=== PATIENT | female | born 1980 | race Caucasian/White ===

== ENCOUNTER → 2017-09-03 15:11 | Outpatient (REF) | payer OTHER, SELFPAY ==
[2017-09-03 18:43] LABS: Basophils % 0.3 % (0.1-2.0); Eosinophils # 0.1 K/mm3 (0.0-0.4); Eosinophils % 1.5 % (0.1-12.0); Hematocrit 33.9 % (37.0-47.0); Hemoglobin 10.5 g/dL (12.2-16.2); Lymphocytes # 1.5 K/mm3 (0.7-4.5); Lymphocytes % 19.6 K/mm3 (10-50); Mean Corpuscular Hemoglobin 25.3 pg (27.0-31.2); Mean Corpuscular Volume 81.6 fl (81-99); Mean Platelet Volume 9.1 fl (7.4-10.4); Monocytes # 0.5 K/mm3 (0.1-1.0); Monocytes % 6.7 % (1.7-9.3); Neutrophils # 5.5 K/mm3 (1.8-7.8); Neutrophils % 71.9 % (37.0-80.0); Platelet Count 298 K/mm3 (142-424); Red Blood Count 4.15 M/mm3 (4.20-5.40); Red Cell Distribution Width 13.8 % (11.5-17.5); White Blood Count 7.7 K/mm3 (4.8-10.8)
[2017-09-03 19:35] LABS: Alanine Aminotransferase 27 U/L (12-78); Albumin Level 4.2 gm/dL (3.4-5.0); Albumin/Globulin Ratio 1.2 (1.1-1.8); Alkaline Phosphatase 80 U/L (46-116); Anion Gap 12.3 mEq/L (5-15); Aspartate Amino Transferase 22 U/L (15-37); Bilirubin,Total 0.2 mg/dL (0.2-1.0); Blood Urea Nitrogen 14 mg/dL (7-18); Calcium 9.4 mg/dL (8.5-10.1); Carbon Dioxide 24 mmol/L (21.0-32.0); Chloride 107 mmol/L (98-107); Chol/HDL Ratio 3.9 (1-3.5); Cholesterol 175 mg/dL (140-200); Creatinine,Serum 0.68 mg/dL (0.55-1.02); Estimated Glomerular Filt Rate 98 ml/min (>60); GFR (African American) 118 ML/MIN (>60); Globulin 3.6 gm/dl (1.3-3.2); Glucose 84 mg/dL (74-106); HDL Cholesterol 45 mg/dL (29-89); LDL Cholesterol 115 mg/dL (0-130); Potassium 4.3 mmoL/L (3.5-5.1); Sodium 139 mmol/L (136-145); T4 (Thyroxine) 10.7 ug/dl (4.7-13.3); Thyroid Stimulating Hormone 3.93 uIU/ml (0.358-3.740); Total Protein,Serum 7.8 gm/dL (6.4-8.2); Triglycerides 75 mg/dL (30-200); VLDL Cholesterol 15 mg/dL (0-40)
[2017-09-04 15:48] LABS: Ferritin 5 ng/mL (8-388)
[2017-09-06 08:25] LABS: Iron 42 ug/dL (27-159); UIBC 343 ug/dL (131-425)
[2017-09-06 11:08] LABS: Vitamin D 25 Hydroxy 33.4 ng/mL (30.0-100.0)
[2017-09-06 11:11] LABS: Iron Saturation 11 % (15-55)
== END ==
LOC: LAB 15:11
PROVIDERS: Visit Provider Physician Assistant
DX: E03.9 Hypothyroidism, unspecified (principal); D50.9 Iron deficiency anemia, unspecified; E55.9 Vitamin D deficiency, unspecified
CPT/HCPCS: 80053; 80061; 82652; 82728; 83550; 84436; 84443; 85025

== ENCOUNTER → 2017-09-04 08:20 | Outpatient (REF) | payer OTHER, SELFPAY | LOC: LAB 08:20 | PROVIDERS: Visit Provider Physician Assistant | DX: E03.9 Hypothyroidism, unspecified (principal) ==

== ENCOUNTER → 2018-04-08 13:57 | Outpatient (REF) | payer OTHER, SELFPAY ==
[2018-04-08 18:01] LABS: Basophils # 0.1 K/mm3 (0-0.2); Eosinophils # 0.2 K/mm3 (0.0-0.4); Eosinophils % 2.9 % (0.1-12.0); Hematocrit 29.1 % (37.0-47.0); Hemoglobin 8.9 g/dL (12.2-16.2); Lymphocytes # 1.2 K/mm3 (0.7-4.5); Lymphocytes % 22.8 K/mm3 (10-50); Mean Corpuscular HGB Conc 30.5 g/dL (31.8-35.4); Mean Corpuscular Hemoglobin 23.4 pg (27.0-31.2); Mean Corpuscular Volume 76.8 fl (81-99); Mean Platelet Volume 8.1 fl (7.4-10.4); Monocytes # 0.4 K/mm3 (0.1-1.0); Monocytes % 6.6 % (1.7-9.3); Neutrophils # 3.5 K/mm3 (1.8-7.8); Neutrophils % 66.8 % (37.0-80.0); Platelet Count 385 K/mm3 (142-424); Red Blood Count 3.78 M/mm3 (4.20-5.40); Red Cell Distribution Width 13.6 % (11.5-17.5); White Blood Count 5.3 K/mm3 (4.8-10.8)
[2018-04-08 18:19] LABS: Alanine Aminotransferase 21 U/L (12-78); Albumin Level 3.9 gm/dL (3.4-5.0); Albumin/Globulin Ratio 1.1 (1.1-1.8); Anion Gap 14.4 mEq/L (5-15); Aspartate Amino Transferase 13 U/L (15-37); Bilirubin,Total 0.2 mg/dL (0.2-1.0); Blood Urea Nitrogen 11 mg/dL (7-18); Calcium 9.2 mg/dL (8.5-10.1); Carbon Dioxide 25 mmol/L (21.0-32.0); Chloride 107 mmol/L (98-107); Cholesterol 163 mg/dL (140-200); Creatinine,Serum 0.87 mg/dL (0.55-1.02); Estimated Glomerular Filt Rate 73 ml/min (>60); GFR (African American) 89 ML/MIN (>60); Globulin 3.5 gm/dl (1.3-3.2); Glucose 85 mg/dL (74-106); HDL Cholesterol 34 mg/dL (29-89); LDL Cholesterol 103 mg/dL (0-130); Potassium 4.4 mmoL/L (3.5-5.1); Sodium 142 mmol/L (136-145); Total Protein,Serum 7.4 gm/dL (6.4-8.2); Triglycerides 129 mg/dL (30-200); VLDL Cholesterol 26 mg/dL (0-40)
[2018-04-08 18:20] LABS: Alkaline Phosphatase 75 U/L (46-116); Chol/HDL Ratio 4.8 (1-3.5); Thyroid Stimulating Hormone 4.66 uIU/ml (0.358-3.740)
[2018-04-10 20:01] LABS: Vitamin D 25 Hydroxy 48.1 ng/mL (30.0-100.0)
== END ==
LOC: LAB 13:57
PROVIDERS: Visit Provider Physician Assistant
DX: E03.9 Hypothyroidism, unspecified (principal); E55.9 Vitamin D deficiency, unspecified
CPT/HCPCS: 80053; 80061; 82652; 84436; 84443; 85025

== ENCOUNTER → 2018-04-18 08:17 | Outpatient (CLI) | payer OTHER, SELFPAY ==
[2018-04-18 11:00] LABS: Ferritin 4 ng/mL (8-388)
[2018-04-19 12:13] LABS: Iron 15 ug/dL (27-159); UIBC 357 ug/dL (131-425)
[2018-04-21 05:17] LABS: Iron Saturation 4 % (15-55)
== END ==
LOC: LAB 08:17
PROVIDERS: PCP Physician Assistant; Visit Provider Physician Assistant
DX: D50.9 Iron deficiency anemia, unspecified (principal)
CPT/HCPCS: 36415; 82728; 83540; 83550

== ENCOUNTER → 2018-09-30 09:20 | Outpatient (CLI) | payer OTHER, SELFPAY ==
--- NOTE | 2018-09-30 09:23 | US_ITS ---
US transvaginal HISTORY: ITS.REASON: US T/V- Abnormal Bleeding, check uterus Size ORDERING PHYSICIAN: Obi Walsh MD PATIENT AGE: 37 years Comparison: None FINDINGS: The uterus is enlarged at 14 x 11 x 13 cm. Combined endometrial thickness is 9 mm. There is a 9 x 9 cm area of heterogeneous echogenicity in the fundus of the uterus consistent with fibroid. Left ovary is 4 x 2.6 cm and contains a 2 cm cyst. The right ovary is difficult to visualize. No obvious adnexal mass evident on the right. In the left adnexa superior to the ovary there is a cystic area measuring 5 x 4 cm. This could represent an area of fluid-filled bowel. Tubular appearing area of hypoechogenicity noted in this region as well which may be due to bowel. IMPRESSION: 1. Enlarged uterus with noncemented fibroid. 2. Incomplete evaluation of the right adnexa3 cystic area superior to the left ovary possibly related to fluid-filled bowel. CT of the pelvis with both IV and oral contrast with delayed imaging may be of further value.
== END ==
PROVIDERS: PCP Physician Assistant; Visit Provider Nurse Practitioner Obstetrics & Gynecology
DX: N93.9 Abnormal uterine and vaginal bleeding, unspecified (principal)
CPT/HCPCS: 76830

== ENCOUNTER → 2018-11-18 10:08 | Outpatient (CLI) | payer OTHER, SELFPAY ==
[2018-11-18 10:48] LABS: Basophils # 0.1 K/mm3 (0-0.2); Basophils % 0.8 % (0.1-2.0); Eosinophils # 0.1 K/mm3 (0.0-0.4); Eosinophils % 1.2 % (0.1-12.0); Hematocrit 26.2 % (37.0-47.0); Lymphocytes # 1.3 K/mm3 (0.7-4.5); Lymphocytes % 21.6 % (10-50); Mean Corpuscular HGB Conc 28.1 g/dL (31.8-35.4); Mean Corpuscular Hemoglobin 19.8 pg (27.0-31.2); Mean Corpuscular Volume 70.7 fl (81-99); Mean Platelet Volume 6.9 fl (7.4-10.4); Monocytes # 0.3 K/mm3 (0.1-1.0); Monocytes % 5.4 % (1.7-9.3); Neutrophils # 4.4 K/mm3 (1.8-7.8); Neutrophils % 71.1 % (37.0-80.0); Platelet Count 357 K/mm3 (142-424); Red Cell Distribution Width 15.2 % (11.5-17.5); White Blood Count 6.2 K/mm3 (4.8-10.8)
[2018-11-18 10:54] LABS: Hemoglobin 7.3 g/dL (12.2-16.2)
[2018-11-18 11:14] LABS: HCG Qualitative, Serum Negative (Negative)
[2018-11-18 12:34] LABS: Anion Gap 15.1 mEq/L (5-15); Blood Urea Nitrogen 13 mg/dL (7-18); Calcium 9.2 mg/dL (8.5-10.1); Carbon Dioxide 23 mmol/L (21.0-32.0); Chloride 105 mmol/L (98-107); Creatinine,Serum 0.72 mg/dL (0.55-1.02); Estimated Glomerular Filt Rate 91 ml/min (>60); GFR (African American) 110 ML/MIN (>60); Glucose 73 mg/dL (74-106); Potassium 4.1 mmoL/L (3.5-5.1); Sodium 139 mmol/L (136-145)
== END ==
LOC: LAB 10:09
PROVIDERS: Visit Provider Nurse Practitioner Obstetrics & Gynecology
DX: Z01.818 Encounter for other preprocedural examination (principal)
CPT/HCPCS: 36415; 80048; 84703; 85025

== ENCOUNTER → 2018-11-20 09:59 | Outpatient (CLI) | payer OTHER, SELFPAY | PROVIDERS: Visit Provider Nurse Practitioner Obstetrics & Gynecology | DX: Z01.818 Encounter for other preprocedural examination (principal); R10.2 Pelvic and perineal pain; N83.209 Unspecified ovarian cyst, unspecified side; D25.9 Leiomyoma of uterus, unspecified | CPT/HCPCS: 36415; 86850 ==

== ENCOUNTER 2018-11-21 06:04 | Inpatient (IN) ==
--- NOTE | 2018-11-21 07:08 | Progress Note ---
[facility] Anesthesia Checklist - Patient Identification Patient Identification: Arm Band, Verbal (Name & ) - Structural Data Admitted From: Home Planned Operative Procedure/s: [facility] Consent for Planned Operative Procedure(s) Verified: Yes Verified Documents: History and Physical - NPO Status Verified Time NPO: 00:00 - Chart Verification Results Verified: CBC, BMP - Additional verifications Patient : No Anesthesia Reactions: No Hx Blood Transfusions: No Blood Transfusion Reaction: No Cephalosporin Allergy: No Previous Colonoscopy: No - Cardiovascular Assessment Heart Sounds: S1 & S2 Pulse Strength: Baseline Pulse Rhythm: Regular Peripheral Edema: No - Airway Assessment C-Spine Mobility Assessed: Yes TMJ Mobility Assessed: Yes Dentition: Good Dentition - Neurological Assessment Level of Consciousness: Awake, Alert, Appropriate Hx Seizures: No Numbness or tingling in extremities: No - Anesthesia Plan Anesthesia Risk discussed: Yes Anesthesia Plan: Verified ASA Class: II Anesthesia Type: General [facility] History I have reviewed the patient's past medical history: Yes Medical History: Reports:: Migraine Denies:: Cancer, Diabetes Mellitus Type 1, Diabetes Mellitus Type 2, Internal Pacemaker, MRSA, Seizures *Have you ever received a pneumonia vaccine?: No *Have you received a flu vaccine this season?: Yes Other Medical History: Reports: Anemia, Thyroid Disease. Denies: Blood Transfusion Reaction Other Surgeries: Yes: Tubal Ligation. No: Pacemaker Amputation: No Fractures: No - *Social History Educational Level: Completed GED/General Educational Development Smoking Status: Never smoker Alcohol Intake: never Substance Use Type: denies use *Occupational Status:: employed Housing: apartment Household Members: family *Travel in the last 8 weeks: None - Psychiatric History Expresses thoughts of harming self/others: None Suicide Plan Description: No Plan Family Hx:: Heart Attack, Diabetes, Hyperlipidemia, Cancer, Thyroid Disorder [employer] GENERAL history: Spontaneous
--- NOTE | 2018-11-21 08:59 | Operative Note ---
Date of procedure: 11/21/18 Pre-op Diagnosis:: Fibroid uterus, anemia, menorrhagia Post-op Diagnosis:: Fibroid uterus, anemia, menorrhagia, left paratubal possible retroperitoneal cyst Procedure performed:: Total abdominal hysterectomy, bilateral salpingectomy, drainage of peritoneal cyst Surgeon:: Obi Walsh MD Aquarist(s):: Dr. Spivey DIGITAL LEARNING [employer]ATFORMS MANAGER:: Vahe Reece Anesthesia: GETA Estimated blood loss (mL): 500 Clinical Note:: She is a 38-year-old lady who complains of extremely heavy periods. She had an ultrasound that showed an enlarged uterus. It had a large fibroid. She is also anemic with a hemoglobin of 7.3. Has been taking iron. After having discussed the risks and benefits we elected to perform a total abdominal hysterectomy, bilateral salpingectomy. Operative findings:: She had an enlarged uterus approximately 14 weeks size. The ovaries appeared normal. The tubes appeared normal. They had been previously ligated. The rest of the pelvis appeared normal. She had a 5 cm paratubal possible retroperitoneal cyst adjacent to the infundibular pelvic ligament. It was thin- walled and filled with clear fluid. Operative note:: She was taken to the operating room where general anesthesia was found be adequate. She was prepped and draped in the normal sterile fashion in the supine position. Vidales catheter was in the bladder. I made a midline incision from just below the umbilicus to just above the pubic hairline. I then used cautery to open up to the fascia. The fascia was then opened in midline and extended superiorly and inferiorly with cautery. The rectus muscles were then in the midline. Peritoneum was grasped and opened with Metzenbaum scissors. This incision was then extended superiorly and inferiorly with cautery. We had good visualization of the bladder anteriorly. An O'Sam-O'Phillips retractor was then placed within the abdominal cavity and the bowel was packed away with warm moist packs. The cornua of the uterus was grasped with Madina clamps bilaterally. The left round ligament was then grasped and opened with Metzenbaum scissors. I opened the peritoneum to the midline overlying the bladder. The round ligament was then tied and tagged. We then opened up the posterior aspect of the broad l igament isolating the utero-ovarian ligament. A second clamp was placed across this and the intervening tissue was cut. The pedicle was then suture-ligated followed by a free tie. We then clamped across the uterine artery at the level of the internal loss and cut this with Metzenbaum scissors. This was suture- ligated. We then took down the cardinal ligaments and uterosacral ligaments in a [id number] fashion using straight Chris clamps. We clamped cut and suture- ligated these individual pedicles. We then turned our attention to the patient's right side. We grasped the round ligament on the right side and once again opened this up. We opened up the peritoneum to the midline. We then suture ligated the round ligament and tagged place. We then took down the bladder anteriorly. We then fenestrated the posterior aspect of the broad ligament isolating the utero- ovarian ligament. This was then doubly clamped and cut. We then suture-ligated this followed by a free tie. We then skeletonized the uterine arteries on the right side and clamped across these with Chris clamp. This was cut and suture- ligated. We then took down the cardinal ligaments on the right side clamping cutting and suture ligating as we went. We then elected to remove the uterus from the cervix since it was quite bulky. We cut across the cervix with knife. We then grasped the cervical pedicle with a double-tooth tenaculum. We then further took down on either side the uterosacral ligaments clamping cutting and suture ligating as we went. We got to the level of the vagina clamped across the vagina vault with curved Chris clamps from both right side and left side. The cervix was then amputated from the vaginal vault. The vaginal fornices were then suture ligated and tagged. We then closed the vaginal vault using running 0 Vicryl suture in a locked fashion from right to left. The left ovarian cyst along the pelvic sidewall close to the infundibulopelvic ligament was then opened and clear fluid drained. The pelvis was then rinsed with saline and hemostasis was assured. I elected to place a large piece of Gelfoam over the vaginal vault. The retractor and moist packs were then removed. The peritoneum was then closed using running 2-0 Vicryl suture. The fascia was then closed using running #1 Vicryl suture from superior to inferior. The subtenons tissues were then irrigated with warm water and the deep tissues were closed using 2-0 Monocryl suture. The skin was closed with kevin. I then cleaned the skin with Hibiclens and a sterile dressing was applied. The patient tolerated procedure well and was taken to the recovery room in excellent condition. All sponge, instrument and needle counts were correct. The estimated blood loss was approximately 500 cc. Since her hemoglobin was only 7.3 prior to surgery we elected to give her 2 units of blood while in the surgery. We will plan to repeat her hemoglobin and if it continues to be low we will consider giving her more blood post surgery. Condition: stable Disposition: PACU Specimens:: Uterus and bilateral fallopian tubes Complications:: None
--- NOTE | 2018-11-21 09:28 | Progress Note ---
[facility] Anesthesia Record Part I Intake, IV Amount: 850 Estimated blood loss (mL): 500 Urine output (mL): 350 Blood Products used (#): PRBC's Blood Pressure: 145/78 SaO2: 99 Pulse Rate: 89 Respiratory Rate: 18 Temperature: 97.7 F Patient is:: Drowsy, Stable Stable to PACU at:: 09:21
--- NOTE | 2018-11-21 09:29 | Progress Note ---
[facility] Anesthesia Record Part II Discharge Time: 09:51 Destination: Obstetric Gynecology Dept PACU nurse assessment reviewed?: Yes Patient Condition:: Good Anesthesia Complications:: None Swallowing reflex intact?: Yes Cyanosis?: No
[2018-11-21 10:38] LABS: Hematocrit 28.5 % (37.0-47.0); Hemoglobin 8.6 g/dL (12.2-16.2)
--- NOTE | 2018-11-21 13:47 | Pharmacy Consult Notes ---
[facility] Pharmacy VTE Monitoring - Patient Demographics Admission date: 11/21/18 Report Date: 11/21/18 Time: 13:46 Allergies/Adverse Reactions: Patient Allergies No Known Allergies Allergy (Verified 11/21/18 06:37) Height: 1.65 m Weight: 70.307 kg - VTE Risk Labs: VTE Related Lab Results Hgb 8.6 g/dL (12.2-16.2) L 11/21/18 10:30 Hct 28.5 % (37.0-47.0) L 11/21/18 10:30 Clinical Trial Participant: No - Prophylaxis Types of VTE Prophylaxis: IPCS Knee High Location of Applied Device: Bilateral Lower Extremeties Pharmacologic Type: Enoxaparin
[2018-11-21 19:23] LABS: Hematocrit 32.6 % (37.0-47.0)
[2018-11-21 19:34] LABS: Hemoglobin 10.3 g/dL (12.2-16.2)
[2018-11-22 07:26] LABS: Basophils % 0.3 % (0.1-2.0); Eosinophils % 0.2 % (0.1-12.0); Hematocrit 31.4 % (37.0-47.0); Hemoglobin 9.6 g/dL (12.2-16.2); Lymphocytes # 1.9 K/mm3 (0.7-4.5); Lymphocytes % 18.9 % (10-50); Mean Corpuscular HGB Conc 30.6 g/dL (31.8-35.4); Mean Corpuscular Hemoglobin 23.7 pg (27.0-31.2); Mean Corpuscular Volume 77.4 fl (81-99); Mean Platelet Volume 7.9 fl (7.4-10.4); Monocytes # 0.6 K/mm3 (0.1-1.0); Monocytes % 6.2 % (1.7-9.3); Neutrophils # 7.6 K/mm3 (1.8-7.8); Neutrophils % 74.4 % (37.0-80.0); Platelet Count 199 K/mm3 (142-424); Red Blood Count 4.06 M/mm3 (4.20-5.40); Red Cell Distribution Width 17.4 % (11.5-17.5); White Blood Count 10.2 K/mm3 (4.8-10.8)
[2018-11-22 07:30] LABS: Anion Gap 12.9 mEq/L (5-15); Potassium 3.9 mmoL/L (3.5-5.1)
--- NOTE | 2018-11-22 09:03 | Progress Note ---
Internal Medicine - PN: Subj *Date: 11/22/18 *Time: 09:01 Interval history: She is doing well this morning. She is eating and drinking. She still has a Vidales catheter. She denies any chest pain, shortness of breath or calf tenderness. Exam Vital signs and Labs for Last 24 Hours: Temp Pulse Resp BP Pulse Ox 99.0 F 77 18 118/57 L 97 11/22/18 08:00 11/22/18 08:00 11/22/18 08:00 11/22/18 08:00 11/22/18 08:00 Laboratory Results - last 24 hr 11/21/18 07:35: Urine Color Straw, Urine Appearance Clear, Urine pH 6.5, Ur Specific [place] <= 1.005, Urine Protein Negative, Urine Glucose (UA) Negative, Urine Ketones Negative, Urine Blood 1+, Urine Nitrate Negative, Urine Bilirubin Negative, Urine Urobilinogen 0.2, Ur Leukocyte Esterase Negative, Urine RBC Occasional, Urine WBC 3-5, Ur Squamous Epith Cells 3-5, Urine Bacteria Trace 11/21/18 10:30: Hgb 8.6 L, Hct 28.5 L 11/21/18 19:15: Hgb 10.3 L D, Hct 32.6 L 11/22/18 07:05: WBC 10.2, RBC 4.06 L, Hgb 9.6 L, Hct 31.4 L, MCV 77.4 L, MCH 23.7 L, MCHC 30.6 L, RDW 17.4, Plt Count 199 D, MPV 7.9, Neut % (Auto) 74.4, Lymph % (Auto) 18.9, [place] % (Auto) 6.2, Eos % (Auto) 0.2, Baso % (Auto) 0.3, Neut # (Auto) 7.6, Lymph # (Auto) 1.9, [place] # (Auto) 0.6, Eos # (Auto) 0.0, Baso # (Auto) 0.0 11/22/18 07:05: Sodium 141, Potassium 3.9, Chloride 106, Carbon Dioxide 26, Anion Gap 12.9, BUN 8, Creatinine 0.92, Estimated Creat Clear 92, Estimated GFR 68, Est GFR ( Amer) 83, Glucose 94, Calcium 9.0 I & O for Last 24 hours: Intake & Output 11/19/18 11/20/18 11/21/18 11/22/18 11:59 11:59 11:59 11:59 Intake Total 1100 / 1100 2100 / 2100 Output Total 900 / 900 Balance 1100 / 1100 1200 / 1200 Weight 155 lb - Constitutional no acute distress - *Routine HEENT Exam Head: Present: normocephalic Eye: Present: EOMI, PERRL ENT: Present: mucous membranes moist - *Routine Neck Exam Present: supple, full ROM - *Routine Respiratory Exam Absent: accessory muscle use (good air entry bilaterally), wheezes, crackles - *Routine Cardiovascular Exam Present: RRR. Absent: murmur - *Routine Abdominal Exam Present: soft, normoactive bowel sounds. Absent: tenderness, rebound, guarding, mass Comments: Her incision is clean and dry. We will change the dressing today. - *Routine Skin Exam Present: intact (good color) - *Routine Neurological Exam Present: alert, oriented X3 - Routine Psychiatric Exam Present: normal affect Assessment and Plan (1) Fibroid uterus Current visit: Yes Status: Acute Category: Medical Code(s): D25.9 - Leiomyoma of uterus, unspecified (2) Menorrhagia Current visit: Yes Status: Acute Category: Medical Code(s): N92.0 - Excessive and frequent menstruation with regular cycle (3) Iron deficiency anemia Current visit: No Status: Chronic Qualifiers: Category: Medical Code(s): D50.9 - Iron deficiency anemia, unspecified (4) Thyroid Dysfunction Current visit: No Status: Chronic Category: Medical Code(s): E07.9 - Disorder of thyroid, unspecified - Assessment and plan all Dx Assessment and Plan for all problems:: She is doing well this morning. Her hemoglobin is 9.6. She has received 4 units of blood. She feels well. We will reduce her IV to 50 cc/h. She will continue with oral pain medicine. She is eating well. We will plan to send her home in 48 hours.
[2018-11-23 08:12] LABS: Hematocrit 28.6 % (37.0-47.0); Hemoglobin 8.9 g/dL (12.2-16.2)
--- NOTE | 2018-11-23 10:57 | Discharge Summary ---
General - General Admission date:: 11/21/18 Discharge date: 11/23/18 HPI HPI: She is a 38-year-old lady who complains of extremely heavy periods. Her ultrasound showed a large fibroid. She has chronic anemia as result of her heavy periods. After having discussed the risks and benefits we elected to perform a total abdominal hysterectomy and bilateral salpingectomy. Hospital Course Hospital Course: On November 22, 2018 she underwent a total abdominal hysterectomy and bilateral salpingectomy. She has done well postoperatively and has remained afebrile throughout her hospitalization. She is eating and drinking and ambulating. She denies any chest pain, shortness of breath or calf tenderness. Her incision is clean and dry. She did receive 4 units of blood while hospitalized. Her hemoglobin prior to surgery was 7.3. Today it is 8.9. We will plan to send her on her way home today to follow-up with me in approximately 2 weeks time. She would like to go home a day early. She has kevin in her skin and will remove those in 2 weeks time. She was given a prescription for Percocet 5/325 number 20 tablets. She will also take ibuprofen. She will continue with her home medications which includes iron tablets twice daily. She was given the usual instructions with respect to limiting her activity, driving and sexual activity. Her condition on discharge is stable. Objective Vital signs: Temp Pulse Resp BP Pulse Ox 98.1 F 73 22 129/77 96 11/23/18 08:00 11/23/18 08:00 11/23/18 08:00 11/23/18 08:00 11/23/18 08:00 no acute distress - *Routine HEENT Exam Head: Present: normocephalic - *Routine Neck Exam Present: supple - *Routine Respiratory Exam Absent: accessory muscle use - *Routine Cardiovascular Exam Present: RRR Results Labs on day of discharge: Labs from last 24 hours 11/23/18 07:56 Hgb 8.9 L Hct 28.6 L DS: Diagnosis - Discharge Diagnosis (1) Fibroid uterus Status: Acute (2) Menorrhagia Status: Acute (3) Iron deficiency anemia Status: Chronic (4) Thyroid Dysfunction Status: Chronic Discharge Plan - Patient Discharge Instructions ACTIVITY: No heavy lifting DIET: continue same diet Additional Instructions: NO HEAVY LIFTING, NO STRENUOUS ACTIVITY, NOTHING IN THE VAGINA FOR 6 WEEKS. Patient Instructions: DI for Surgical Site Infection - Follow up Plan Follow up with: Obi Walsh MD [Staff Physician] - 12/08/18 9:45 am Disposition: Home, Self-Custodial Medications: Home Medications Medication Instructions Recorded Confirmed Type cholecalciferol (vitamin D3) 50,000 unit PO QWEEK 10/28/18 11/21/18 History 50,000 unit capsule ferrous fumarate 325 mg (106 mg 325 mg PO BID tab 10/28/18 11/21/18 History iron) tablet ilqmcwhxrs-qncbztprfcvnm-kjlrpsws 1 cap PO Q6H PRN 10/30/18 11/21/18 History 50 mg-300 mg-40 mg capsule Crisaborole [Eucrisa] 1 applic TOPICAL BID 11/21/18 11/21/18 History Levothyroxine Sodium 50 mcg PO DAILY 11/21/18 11/21/18 History [Levothyroxine 50mcg (0.05mg) Tab] Oxycodone HCl/Acetaminophen 1 - 2 tab PO Q4-6H PRN #20 tab 11/23/18 Rx [Percocet 5/325mg tablet] Prescriptions/Medication Reconciliation: New Oxycodone HCl/Acetaminophen [Percocet 5/325mg tablet] 1 - 2 tab PO Q4-6H PRN #20 tab PRN Reason: Severe Pain Continued cholecalciferol (vitamin D3) 50,000 unit capsule 50,000 unit PO QWEEK ferrous fumarate 325 mg (106 mg iron) tablet 325 mg PO BID tab mcumplzcvs-ibejazxwzxwqd-pwenlrbe 50 mg-300 mg-40 mg capsule 1 cap PO Q6H PRN PRN Reason: UNKNOWN Levothyroxine Sodium [Levothyroxine 50mcg (0.05mg) Tab] 50 mcg PO DAILY Crisaborole [Eucrisa] 1 applic TOPICAL BID
== END 2018-11-23 13:15 | disposition home or self-care (01) | DRG 743 ==
LOC: OR 06:04 → OB 10:34
PROVIDERS: ADMIT Nurse Practitioner Obstetrics & Gynecology; ATTEND Nurse Practitioner Obstetrics & Gynecology
CPT/HCPCS: 36415; 80048; 81001; 85014; 85018; 85025; 96372; 96374; J2405; J2710; P9016

== ENCOUNTER → 2019-12-31 17:24 | Outpatient (CLI) | payer OTHER, SELFPAY ==
[2019-12-31 17:52] LABS: Basophils # 0.1 K/mm3 (0-0.2); Basophils % 0.6 % (0.1-2.0); Eosinophils # 0.1 K/mm3 (0.0-0.4); Eosinophils % 1.1 % (0.1-12.0); Hematocrit 39.1 % (37.0-47.0); Hemoglobin 13.4 g/dL (12.2-16.2); Lymphocytes # 1.8 K/mm3 (0.7-4.5); Lymphocytes % 21.5 % (10-50); Mean Corpuscular HGB Conc 34.4 g/dL (31.8-35.4); Mean Corpuscular Hemoglobin 31.4 pg (27.0-31.2); Mean Corpuscular Volume 91.2 fl (81-99); Mean Platelet Volume 8.1 fl (7.4-10.4); Monocytes # 0.4 K/mm3 (0.1-1.0); Monocytes % 4.4 % (1.7-9.3); Neutrophils % 72.4 % (37.0-80.0); Platelet Count 336 K/mm3 (142-424); Red Blood Count 4.28 M/mm3 (4.20-5.40); Red Cell Distribution Width 12.9 % (11.5-17.5); White Blood Count 8.3 K/mm3 (4.8-10.8)
[2019-12-31 18:13] LABS: Alanine Aminotransferase 34 U/L (12-78); Albumin Level 4.8 g/dl (3.5-5.0); Albumin/Globulin Ratio 1.5 (1.1-1.8); Alkaline Phosphatase 89 U/L (38-126); Aspartate Amino Transferase 37 U/L (14-36); Bilirubin,Total 0.2 mg/dl (0.2-1.3); Blood Urea Nitrogen 12 mg/dl (7-17); Calcium 10.4 mg/dl (8.4-10.2); Carbon Dioxide 25 mmol/L (22.0-30.0); Chloride 104 mmol/L (98-107); Chol/HDL Ratio 3.9 (1-3.5); Cholesterol 206 mg/dl (140-200); Estimated Glomerular Filt Rate 93 ml/min (>60); GFR (African American) 113 ML/MIN (>60); Globulin 3.2 g/dL (1.3-3.2); Glucose 89 mg/dl (74-100); HDL Cholesterol 53 mg/dl (40-60); Sodium 138 mmol/L (136-145); Triglycerides 162 mg/dl (30-150); VLDL Cholesterol 32 mg/dL (0-40)
[2019-12-31 18:24] LABS: Direct LDL Cholesterol 123.15 mg/dL (100-129)
[2019-12-31 18:30] LABS: T4 (Thyroxine) 8.6 ug/dl (5.53-11.0)
[2019-12-31 18:44] LABS: Thyroid Stimulating Hormone 4.61 uIU/mL (0.465-4.68)
== END ==
PROVIDERS: Visit Provider Physician Assistant
DX: E03.9 Hypothyroidism, unspecified (principal); R03.0 Elevated blood-pressure reading, without diagnosis of hypertension; R10.11 Right upper quadrant pain; E55.9 Vitamin D deficiency, unspecified
CPT/HCPCS: 80053; 80061; 82652; 84436; 84443; 85025

== ENCOUNTER → 2020-01-06 08:08 | Outpatient (CLI) | payer OTHER, SELFPAY ==
--- NOTE | 2020-01-06 08:08 | US_ITS ---
PROCEDURE: US ABDOMEN LIMITED CLINICAL INDICATION: RUQ pain COMPARISON: No exams were available for comparison FINDINGS: PANCREAS: Unremarkable. No obvious mass or abnormal fluid collection. No ductal dilatation LIVER: No focal liver lesions demonstrated. Homogeneous echogenicity. No intrahepatic biliary ductal dilatation evident. There is appropriate direction of blood flow within a non dilated portal vein RIGHT KIDNEY: Unremarkable. Normal size and echogenicity. No hydronephrosis GALLBLADDER: No gallstones, gallbladder wall thickening, pericholecystic fluid, or biliary dilatation. IMPRESSION: Unremarkable limited abdominal ultrasound as detailed above disc Dictated by: Hank Mueller MD 01/06/2020 13:45 Electronically signed by Hank Mueller MD in [place] 01/06/2020 13:45
== END ==
PROVIDERS: PCP Physician Assistant; Visit Provider Physician Assistant
DX: R10.11 Right upper quadrant pain (principal)
CPT/HCPCS: 76705

== ENCOUNTER → 2020-12-22 14:00 | Outpatient (CLI) | payer OTHER, SELFPAY ==
[2020-12-22 14:21] LABS: Chloride 105 mmol/L (98-107)
[2020-12-22 14:22] LABS: Potassium 4.1 mmoL/L (3.5-5.1); Sodium 137 mmol/L (136-145)
[2020-12-22 14:24] LABS: Alanine Aminotransferase 30 U/L (12-78); Alkaline Phosphatase 91 U/L (38-126); Anion Gap 14.1 mEq/L (5-15); Aspartate Amino Transferase 33 U/L (14-36); Bilirubin,Total 0.5 mg/dl (0.2-1.3); Blood Urea Nitrogen 12 mg/dl (7-17); Carbon Dioxide 22 mmol/L (22.0-30.0); Estimated Glomerular Filt Rate 93 ml/min (>60); GFR (African American) 112 ML/MIN (>60)
[2020-12-22 14:25] LABS: Albumin Level 4.6 g/dl (3.5-5.0); Albumin/Globulin Ratio 1.6 (1.1-1.8); Calcium 10.3 mg/dl (8.4-10.2); Cholesterol 195 mg/dl (140-200); Globulin 2.8 g/dL (1.3-3.2); Glucose 97 mg/dl (74-100); HDL Cholesterol 49 mg/dl (40-60); Total Protein,Serum 7.4 g/dl (6.3-8.2); Triglycerides 131 mg/dl (30-150); VLDL Cholesterol 26 mg/dL (0-40)
[2020-12-22 14:28] LABS: Basophils # 0.1 K/mm3 (0-0.2); Basophils % 0.7 % (0.1-2.0); Eosinophils # 0.1 K/mm3 (0.0-0.4); Eosinophils % 1.2 % (0.1-12.0); Hematocrit 37.3 % (37.0-47.0); Hemoglobin 12.8 g/dL (12.2-16.2); Lymphocytes # 1.8 K/mm3 (0.7-4.5); Lymphocytes % 22.6 % (10-50); Mean Corpuscular HGB Conc 34.4 g/dL (31.8-35.4); Mean Corpuscular Hemoglobin 30.6 pg (27.0-31.2); Mean Corpuscular Volume 89.1 fl (81-99); Mean Platelet Volume 8.2 fl (7.4-10.4); Monocytes # 0.4 K/mm3 (0.1-1.0); Monocytes % 5.3 % (1.7-9.3); Neutrophils # 5.7 K/mm3 (1.8-7.8); Neutrophils % 70.1 % (37.0-80.0); Platelet Count 295 K/mm3 (142-424); Red Blood Count 4.18 M/mm3 (4.20-5.40); Red Cell Distribution Width 13.2 % (11.5-17.5); White Blood Count 8.1 K/mm3 (4.8-10.8)
[2020-12-22 14:36] LABS: Direct LDL Cholesterol 110.49 mg/dL (100-129)
[2020-12-22 14:41] LABS: Free T4 (Free Thyroxine) 1.06 ng/dl (0.78-2.19)
[2020-12-22 14:50] LABS: 25-OH Vitamin D, Total 46.9 ng/mL (30-100)
[2020-12-22 15:42] LABS: Thyroid Stimulating Hormone 1.85 uIU/mL (0.465-4.68)
== END ==
PROVIDERS: Visit Provider Physician Assistant
DX: D50.9 Iron deficiency anemia, unspecified (principal); E03.9 Hypothyroidism, unspecified; E55.9 Vitamin D deficiency, unspecified; E78.5 Hyperlipidemia, unspecified; G43.909 Migraine, unspecified, not intractable, without status migrainosus
CPT/HCPCS: 80053; 80061; 82306; 84439; 84443; 85025

== ENCOUNTER → 2020-12-29 15:17 | Outpatient (CLI) | payer OTHER, SELFPAY ==
--- NOTE | 2020-12-29 15:17 | MM_ITS ---
PROCEDURE INFORMATION: Exam: MG Screening 3D Mammography Exam date and time: 12/29/2020 3:17 PM Age: 40 years old Clinical indication: Encounter for screening mammogram for malignant neoplasm of breast TECHNIQUE: Imaging protocol: Screening tomosynthesis and 2D mammography including computer-aided detection (CAD) when performed. COMPARISON: No relevant prior studies available. FINDINGS: MAMMOGRAPHY: Breast composition: The breast tissue is heterogeneously dense, which may obscure small masses. Mass: None. Architectural distortion: None. Calcifications: No suspicious calcifications. Asymmetric density: Questionable 0.6 cm focal asymmetry in the middle third of the left lower inner quadrant. Skin thickening: None. Axillary adenopathy: None. IMPRESSION: Patient to be recalled for spot compression views of the left breast in the CC and MLO projections and left breast ultrasound for further evaluation of probably benign left breast asymmetry. ASSESSMENT: BI-RADS Category 0: Incomplete- Need Additional Imaging Evaluation and/or Prior Mammograms for Comparison
== END ==
PROVIDERS: PCP Physician Assistant; Visit Provider Physician Assistant
DX: Z12.31 Encounter for screening mammogram for malignant neoplasm of breast (principal)
CPT/HCPCS: 77063; 77067

== ENCOUNTER → 2021-02-02 13:48 | Outpatient (CLI) | payer OTHER, SELFPAY ==
--- NOTE | 2021-02-02 13:48 | MM_ITS ---
PROCEDURE: MM DIG MAMM DX UNILAT LT CAD Digital Breast Tomosynthesis Included Left breast ultrasound complete with axilla CLINICAL INDICATION: abn mamm COMPARISON: MG MM DIG SCREENING MAMM BI W/CAD from 12/29/2020 US US BREAST LT COMPLETE from 02/02/2021 TECHNIQUE: Spot-compression views performed along with left breast ultrasound FINDINGS: The asymmetric area of increased density in the inferior aspect of the left breast does appear to compress out on the focal spot compression view. Benign-appearing nodular opacity is present in the lateral aspect of the left breast anterior 1/3 measuring 4 mm on the CC view. Left breast ultrasound: At 1 o'clock there is a 3 x 3 mm cyst which may correspond to the mammographic abnormality. At 2 o'clock there is a hypoechoic nodule at 4 mm and may represent a complex cyst. At 4 o'clock near the nipple there is a hypoechoic abnormality taller than wide measuring 8 x 4 mm with ill-defined margins and posterior acoustical shadowing. IMPRESSION: Focal asymmetry in the inferior left breast appears to compress out as fibroglandular tissue however, there is a sonographic abnormality at 4 o'clock that is suspicious. Suggest ultrasound-guided FNA with possible mammotome or core biopsy to follow. BI-RAD Category: 4 Suspicious Abnormality-Biopsy Considered FOLLOW-UP: BIO Biopsy Recommended (A letter has been sent to the patient regarding results of the study.) Dictated by: Hank Mueller MD 02/08/2021 13:51 Hank Mueller MD in [facility] 02/08/2021 13:51
== END ==
PROVIDERS: PCP Physician Assistant; Visit Provider Physician Assistant
DX: R92.8 Other abnormal and inconclusive findings on diagnostic imaging of breast (principal)
CPT/HCPCS: 76641; 77061; 77065; G0279

== ENCOUNTER → 2021-03-09 09:37 | Outpatient (CLI) | payer OTHER, SELFPAY ==
--- NOTE | 2021-03-09 09:37 | US_ITS ---
PROCEDURE: US MAMMOTOME BX LT CLINICAL INDICATION: Suspicious left breast nodule COMPARISON: MG MM DIG SCREENING MAMM BI W/CAD from 12/29/2020 US US BREAST LT COMPLETE from 02/02/2021 MG MM DIG MAMM DX UNILAT LT CAD from 02/02/2021 MG MM CLIP PLACEMENT LT from 03/09/2021 FINDINGS: Following time-out procedure and obtaining informed consent under aseptic conditions and local anesthesia with 1 percent buffered lidocaine and deeper anesthesia with lidocaine mixed with epinephrine with sonographic guidance, 10 gauge mammotome needle inserted into the left breast in the appropriate location in the 4 o'clock region of the left breast centrally. Multiple mammotome biopsies were obtained and clip placed. Patient tolerated the procedure well without evidence of immediate complication. Pathology: Benign breast tissue with adenosis, PASH, negative for atypical hyperplasia or carcinoma. Post biopsy mammogram: Post biopsy changes are present in the slightly lateral central left breast with biopsy clip in place. IMPRESSION: Uneventful ultrasound-guided mammotome biopsy left breast showing no evidence atypia or carcinoma. Pseudoangiomatous hyperplasia/Pash was present. Suggest 6 month mammographic and sonographic follow-up to confirm short term stability. Dictated by: Hank Mueller MD 03/20/2021 11:47 Hank Mueller MD in [facility] 03/20/2021 11:47
== END ==
LOC: RAD 09:37
PROVIDERS: PCP Physician Assistant; Visit Provider Physician Assistant
DX: R92.8 Other abnormal and inconclusive findings on diagnostic imaging of breast (principal)
CPT/HCPCS: 19083; 77065

== ENCOUNTER 2021-03-11 14:39 | Emergency (ER) | payer OTHER, SELFPAY ==
[2021-03-11 14:39] VITALS: BP 161/98; PULSE 109; RESP 19; TEMP 37.1; O2SAT 98; BMI 25.5
--- NOTE | 2021-03-11 16:01 | HMH.EDUTC ---
[facility] [place] Disposition Clinical Impression: Exposure to COVID-19 virus Disposition: Home, Self-Care Condition on Discharge: Good Instructions: Preventing the Spread of Coronavirus Discharge Instructions Additional Instructions: You have been tested for COVID19. Please isolate yourself as if you are positive until test results received. Referrals: Katelynn Agrawal PA [Primary Care Provider] - Time of Disposition: 16:08 Medical Decision Making - Vick Inquiry Pt receiving controlled substance: No Vital Signs: 03/11/21 14:39 Temperature 98.7 F Temperature Source Oral Pulse Rate [Left Radial] 109 H Respiratory Rate 19 Blood Pressure [Right Arm] 161/98 H Blood Pressure Mean [Right Arm] 119 Blood Pressure Source [Right Arm] Automatic Cuff Blood Pressure Position [Right Arm] Sitting 02 Sat by Pulse Oximetry 98 Oxygen Delivery Method Room Air Orders (Tests/Meds): ORDERS Category Date Time Status Rapid PCR Covid and Flu A/B Stat Lab 03/11/21 15:40 Ordered [facility] [place] HPI - General Stated complaint: covid test Time Seen by Provider: 03/11/21 16:02 Mode of Arrival: Ambulatory Source of Information: Patient Limitations: No Limitations Description of Symptoms (Recalled from Triage Doc. by RN): sore throat, body aches and diarrhea HEENT Symptoms (Recalled from RN notes): Yes Resp Symptoms (Recalled from RN notes): No Skin Symptoms (Recalled from RN notes): No MS Symptoms (Recalled from RN notes): No Functional Status (Recalled from RN notes): nA - History of Present Illness Provider Complaint: tested positive for COVID19 yesterday. She has had fever, scratchy throat, headache, diarrhea since last night. Onset (ago): day(s) (1) Relieving factors: none Exacerbating factors: none Associated symptoms: denies other symptoms Treatments prior to arrival: none - Related Data Previous Rx's Medication Instructions Recorded ergocalciferol (vitamin D2) 1,250 50,000 unit PO QWEEK 90 Days #14 12/22/20 mcg (50,000 unit) capsule cap ferrous fumarate 325 mg (106 mg 325 mg PO BID #180 tab 12/22/20 iron) tablet levothyroxine 50 mcg tablet 50 mcg PO DAILY #90 tab 12/22/20 phentermine 37.5 mg tablet 37.5 mg PO DAILY #30 tab 12/22/20 propranolol 80 mg capsule,24 80 mg PO DAILY #90 cap 12/22/20 hr,extended release simvastatin 10 mg tablet 10 mg PO QHS #90 tab 12/22/20 oajfalpwwu-larfrrkosuwew-matxzzgs 1 tab PO Q6H PRN #30 tab 02/22/21 50 mg-325 mg-40 mg tablet lisinopril 10 mg tablet 10 mg PO DAILY #30 tab 02/22/21 Allergies Allergy/AdvReac Type Severity Reaction Status Date / Time No Known Allergies Allergy Verified 02/22/21 15:17 - Worker's Comp Is this a Worker's Comp case?: No [facility] History - Hepatitis A Screen Drug use history?: No High risk sexual behaviors?: No History of sexually transmitted infection?: No Currently employed?: No Childcare worker?: No Do you have indoor plumbing?: Yes Do you have electricity?: Yes Attestation statement:: This patient has been screened for Hepatitis A risk factors. I have reviewed the patient's past medical history: Yes Medical History: Reports:: Migraine Denies:: Cancer, Diabetes Mellitus Type 1, Diabetes Mellitus Type 2, Internal Pacemaker, MRSA, Seizures Other Medical History: Reports: Anemia, Thyroid Disease. Denies: Blood Transfusion Reaction Comment: vit D defficiency Other Surgeries: Yes: Hysterectomy-Total, Hysterectomy-Partial, Tubal Ligation. No: Pacemaker Amputation: No Fractures: No - Social History Smoking Status: Never smoker Alcohol Intake: never Substance Use Type: denies use Occupational Status: employed Housing: apartment Household Members: family Family Hx:: Heart Attack, Diabetes, Hyperlipidemia, Cancer, Thyroid Disorder DIRECTOR OPERATIONS history: Spontaneous ROS Obtained: Yes All systems reviewed & no additional complaints - Constitutional Constitutional: Reports body ache, Reports chills, Reports fever(s), Re
[2021-03-11 16:17] VITALS: BP 161/98; PULSE 109; RESP 19; TEMP 37.1; O2SAT 98
[2021-03-11 16:17] LABS: Coronavirus 19, PCR Not Detected (NotDetected); Influenza A, PCR Not Detected (NotDetected); Influenza B, PCR Not Detected (NotDetected)
== END 2021-03-11 16:19 | disposition home or self-care (01) ==
PROVIDERS: Emergency Provider Physician Assistant; PCP Physician Assistant
DX: Z20.822 Contact with and (suspected) exposure to COVID-19 (principal); R50.9 Fever, unspecified; G43.709 Chronic migraine without aura, not intractable, without status migrainosus
CPT/HCPCS: 99202; G0463; U0003

== ENCOUNTER 2021-09-27 16:28 | Emergency (ER) | payer SELFPAY ==
[2021-09-27] VITALS (7 sets, daily range): BP systolic 153–159; BP diastolic 91–101; PULSE 71–87; RESP 16–18; TEMP 36.4–37.2; O2SAT 99–100; BMI 25.9
[2021-09-27 17:25] LABS: Microscopic, Urine URINE MICROSCOPIC (MICROSCOPIC)
[2021-09-27 17:34] LABS: Appearance,Urine CLEAR (Clear); Bilirubin,Urine Negative (Negative); Blood, Urine 2+ (Negative); Color,Urine YELLOW (Yellow); Glucose,Urine (UA) Negative (Negative); Ketones,Urine Negative (Negative); Leukocyte Esterase,Urine Negative (Negative); Nitrate,Urine Negative (Negative); Protein,Urine Negative (Negative); Specific Gravity, Urine <= 1.005 (1.005-1.030); Urobilinogen,Urine 0.2 EU/dl (0.2)
--- NOTE | 2021-09-27 17:41 | HMH.EDGENADL ---
ED Disposition Clinical Impression: Ovarian cyst rupture Disposition: Home, Self-Care Condition on Discharge: Good Additional Instructions: Please follow-up with Dr. Medina as soon as possible to follow-up urine culture results, unlikely to be urinary tract infection due to your lack of symptoms, though positive culture might need antibiotics are indicated. Please also follow-up with Dr. Walsh with gynecology regarding hemorrhagic ovarian cyst rupture is soon as possible, either early next week or at the end of this week. Please return to the emergency department with any new or worsening symptoms including fainting, weakness, fevers, worsening pain or any other new or concerning symptoms. Prescriptions: Ondansetron [Zofran 4mg ODT] 4 mg PO TIDP PRN 3 Days #9 tab PRN Reason: Nausea Transmission Status: Pending to [id number] Referrals: Alec Medina MD [Primary Care Provider] - Obi Walsh MD [Staff Physician] - - Critical Care Critical Care Time: No Attestation: On 09/27/21, the high probability of a clinically significant, sudden or life threatening deterioration of the following system(s) required my full and direct attention, intervention and personal management. The time I documented below is in addition to time spent performing reported procedures but includes the following listed in this critical care notation. Medical Decision Making - Vick Inquiry Pt receiving controlled substance: No Vital Signs: 09/27/21 16:29 09/27/21 17:00 09/27/21 17:30 Temperature 97.6 F Temperature Source Oral Pulse Rate 77 74 Pulse Rate [Right Radial] 87 Respiratory Rate 18 Blood Pressure 153/92 H 156/95 H Blood Pressure [Right Arm] 156/101 H Blood Pressure Mean 117 114 Blood Pressure Mean [Right Arm] 119 Blood Pressure Source [Right Arm] Automatic Cuff Blood Pressure Position [Right Arm] Sitting 02 Sat by Pulse Oximetry 100 99 99 Oxygen Delivery Method Room Air Room Air Room Air 09/27/21 18:00 09/27/21 19:00 09/27/21 19:30 Temperature Temperature Source Pulse Rate 76 71 74 Pulse Rate [Right Radial] Respiratory Rate Blood Pressure 158/91 H 159/97 H 159/96 H Blood Pressure [Right Arm] Blood Pressure Mean 121 128 118 Blood Pressure Mean [Right Arm] Blood Pressure Source [Right Arm] Blood Pressure Position [Right Arm] 02 Sat by Pulse Oximetry 100 99 99 Oxygen Delivery Method Room Air Room Air Room Air - Lab Data Lab Results 09/27/21 16:45: Urine Color Yellow, Urine Appearance Clear, Urine pH 6.0, Ur Specific [place] <= 1.005, Urine Protein Negative, Urine Glucose (UA) Negative, Urine Ketones Negative, Urine Blood 2+, Urine Nitrate Negative, Urine Bilirubin Negative, Urine Urobilinogen 0.2, Ur Leukocyte Esterase Negative, Urine RBC 3-5, Urine WBC 10-20, Ur Squamous Epith Cells 5-10, Urine Bacteria 1+ 09/27/21 17:20: WBC 10.0, RBC 4.38, Hgb 14.2, Hct 43.2, MCV 98.6, MCH 32.5 H, MCHC 32.9, RDW 13.3, Plt Count 336, MPV 8.0, Neut % (Auto) 71.9, Lymph % (Auto) 20.8, Woodruff % (Auto) 5.5, Eos % (Auto) 0.6, Baso % (Auto) 1.2, Neut # (Auto) 7.2, Lymph # (Auto) 2.1, Woodruff # (Auto) 0.6, Eos # (Auto) 0.1, Baso # (Auto) 0.1 09/27/21 17:20: Sodium 133 L, Potassium 4.3, Chloride 101, Carbon Dioxide 24, Anion Gap 12.3, BUN 10, Creatinine 0.70, Estimated Creat Clear 119, Estimated GFR 93, Est GFR ( Amer) 112, Glucose 91, Calcium 9.7, Total Bilirubin 0.7, AST 32, ALT 21, Alkaline Phosphatase 81, Total Protein 8.2, Albumin 4.9, Globulin 3.3 H, Albumin/Globulin Ratio 1.5, Lipase 64 09/27/21 18:25: Lactate 1.7 Result diagrams: 09/27/21 17:20 09/27/21 17:20 Orders (Tests/Meds): ED MEDICATIONS Generic Name Dose Route Start Last Admin Trade Name Freq PRN Reason Stop Dose Admin Sodium Chloride 10 ml 09/27/21 17:08 Sodium Chloride 0.9% 10ml Flush Syringe IV 10/27/21 17:07 NEEDED PRN Maintain IV Site Discontinued Medications Generic Name
[2021-09-27 17:55] LABS: Chloride 101 mmol/L (98-107); Potassium 4.3 mmoL/L (3.5-5.1); Sodium 133 mmol/L (136-145)
[2021-09-27 17:57] LABS: Bacteria,Urine 1+ /lpf
[2021-09-27 17:57] LABS: Alanine Aminotransferase 21 U/L (12-78); Aspartate Amino Transferase 32 U/L (14-36); Bilirubin,Total 0.7 mg/dl (0.2-1.3); Blood Urea Nitrogen 10 mg/dl (7-17); Creatinine Clearance Estimated 119 mL/min (50-200); Estimated Glomerular Filt Rate 93 ml/min (>60); GFR (African American) 112 ML/MIN (>60)
[2021-09-27 17:58] LABS: Albumin Level 4.9 g/dl (3.5-5.0); Albumin/Globulin Ratio 1.5 (1.1-1.8); Alkaline Phosphatase 81 U/L (38-126); Anion Gap 12.3 mEq/L (5-15); Calcium 9.7 mg/dl (8.4-10.2); Carbon Dioxide 24 mmol/L (22.0-30.0); Globulin 3.3 g/dL (1.3-3.2); Glucose 91 mg/dl (74-100); Lipase 64 U/L (23-300); Total Protein,Serum 8.2 g/dl (6.3-8.2)
[2021-09-27 18:06] LABS: Basophils # 0.1 K/mm3 (0-0.2); Basophils % 1.2 % (0.1-2.0); Eosinophils # 0.1 K/mm3 (0.0-0.4); Eosinophils % 0.6 % (0.1-12.0); Hematocrit 43.2 % (37.0-47.0); Hemoglobin 14.2 g/dL (12.2-16.2); Lymphocytes # 2.1 K/mm3 (0.7-4.5); Lymphocytes % 20.8 % (10-50); Mean Corpuscular HGB Conc 32.9 g/dL (31.8-35.4); Mean Corpuscular Hemoglobin 32.5 pg (27.0-31.2); Mean Corpuscular Volume 98.6 fl (81-99); Monocytes # 0.6 K/mm3 (0.1-1.0); Monocytes % 5.5 % (1.7-9.3); Neutrophils # 7.2 K/mm3 (1.8-7.8); Neutrophils % 71.9 % (37.0-80.0); Platelet Count 336 K/mm3 (142-424); Red Blood Count 4.38 M/mm3 (4.20-5.40); Red Cell Distribution Width 13.3 % (11.5-17.5)
--- NOTE | 2021-09-27 18:06 | CT_ITS ---
PROCEDURE INFORMATION: Exam: CT Abdomen And Pelvis Without And With Contrast Exam date and time: 09/27/2021 6:06 PM Age: 40 years old Clinical indication: Abdominal pain; Prior surgery; Additional info: Abd pain TECHNIQUE: Imaging protocol: Computed tomography of the abdomen and pelvis without and with contrast. Total images: 435 Radiation optimization: All CT scans at this facility use at least one of these dose optimization techniques: automated exposure control; mA and/or kV adjustment per patient size (includes targeted exams where dose is matched to clinical indication); or iterative reconstruction. Contrast material: ISOVUE 370; Contrast volume: 75 ml; Contrast route: INTRATHECAL (MYELOGRAM); COMPARISON: US ABDOMEN LIMITED 01/06/2020 8:07 AM FINDINGS: Lungs: Visualized lung bases are clear. Heart: Heart size normal. Mediastinal space: The visualized distal esophagus is largely contracted without gross abnormality. Liver: Normal contour. No mass lesions. No intrahepatic biliary ductal dilatation. Gallbladder and bile ducts: Normal. No calcified stones. No ductal dilation. Pancreas: Normal. No inflammatory changes or ductal dilation. Spleen: Granulomatous calcifications in the spleen without acute splenic abnormality. Adrenal glands: Normal. No adrenal mass. Kidneys and ureters: No acute abnormalities. No hydronephrosis or hydroureter. No urinary tract stones are identified. Stomach and bowel: The stomach is unremarkable. The small bowel is nondilated with no gross abnormality. Moderate colonic gas and stool suggesting constipation. Appendix: The appendix is normal in caliber and demonstrates no evidence of appendicitis. Intraperitoneal space: Moderate complex fluid in the pelvis measuring 35 Hounsfield units concerning for peritoneal hemorrhage. There is no active contrast extravasation to suggest active hemorrhage currently. No free air. Vasculature: No acute process. No abdominal aortic aneurysm. Lymph nodes: No adenopathy. Urinary bladder: Unremarkable as visualized. Reproductive: Prior hysterectomy. Retained tubal ligation clip just to the right of midline above the bladder dome. Another is seen anterior to the ascending colon. There is a 2.8 cm partially collapsed appearing cyst with mild peripheral enhancement in the left ovary most consistent with a recently ruptured hemorrhagic cyst/follicle. Bones/joints: No acute osseous abnormalities. Soft tissues: Very small fatty umbilical hernia . No evidence of associated bowel herniation or strangulation. IMPRESSION: 1. 2.8 cm probable ruptured hemorrhagic left ovarian cyst/dominant follicle. 2. Moderate intraperitoneal complex fluid suggesting peritoneal hemorrhage. No sites of contrast extravasation suggestive of active peritoneal hemorrhage are identified currently. 3. Prior hysterectomy with retained tubal ligation clips. 4. Moderate colonic gas and stool. 5. These findings initiated a critical results reporting process. An addendum will be issued at the time of clinician notification.
[2021-09-27 19:14] LABS: Lactic Acid 1.7 mmol/L (0.7-2.1)
--- NOTE | 2021-09-27 19:35 | PC.NURSE ---
CHAYA ROQUE speaking with JEN
--- NOTE | 2021-09-27 19:38 | PC.NURSE ---
CHAYA ROQUE speaking with dr. wise (audit consultant factory assembler) at this time
== END 2021-09-27 20:05 | disposition home or self-care (01) ==
PROVIDERS: Emergency Provider Student in an Organized Health Care Education/Training Program; PCP Emergency Medicine
DX: N83.291 Other ovarian cyst, right side (principal); R10.11 Right upper quadrant pain; R11.0 Nausea
CPT/HCPCS: 36415; 74178; 80053; 81001; 83605; 83690; 85025; 87086; 87088; 87186; 99283; J2405; Q9967

== ENCOUNTER → 2021-11-13 14:06 | Outpatient (CLI) | payer SELFPAY ==
[2021-11-13 17:35] LABS: Basophils # 0.1 K/mm3 (0-0.2); Eosinophils # 0.1 K/mm3 (0.0-0.4); Eosinophils % 1.9 % (0.1-12.0); Hemoglobin 13.2 g/dL (12.2-16.2); Lymphocytes # 1.8 K/mm3 (0.7-4.5); Lymphocytes % 24.3 % (10-50); Mean Corpuscular HGB Conc 33.8 g/dL (31.8-35.4); Mean Corpuscular Hemoglobin 32.9 pg (27.0-31.2); Mean Corpuscular Volume 97.3 fl (81-99); Mean Platelet Volume 9.1 fl (7.4-10.4); Monocytes # 0.3 K/mm3 (0.1-1.0); Monocytes % 4.6 % (1.7-9.3); Neutrophils % 68.3 % (37.0-80.0); Platelet Count 348 K/mm3 (142-424); Red Cell Distribution Width 13.2 % (11.5-17.5); White Blood Count 7.4 K/mm3 (4.8-10.8)
[2021-11-13 17:40] LABS: Chloride 106 mmol/L (98-107); Sodium 138 mmol/L (136-145)
[2021-11-13 17:41] LABS: Potassium 4.4 mmoL/L (3.5-5.1)
[2021-11-13 17:43] LABS: Alanine Aminotransferase 39 U/L (12-78); Albumin Level 4.3 g/dl (3.5-5.0); Albumin/Globulin Ratio 1.6 (1.1-1.8); Alkaline Phosphatase 83 U/L (38-126); Aspartate Amino Transferase 49 U/L (14-36); Bilirubin,Total 0.4 mg/dl (0.2-1.3); Blood Urea Nitrogen 9 mg/dl (7-17); Cholesterol 159 mg/dl (140-200); Estimated Glomerular Filt Rate 92 ml/min (>60); GFR (African American) 112 ML/MIN (>60); Globulin 2.7 g/dL (1.3-3.2); Iron 98 ug/dL (37-170); Triglycerides 254 mg/dl (30-150); VLDL Cholesterol 51 mg/dL (0-40)
[2021-11-13 17:44] LABS: Calcium 9.9 mg/dl (8.4-10.2); Chol/HDL Ratio 4.3 (1-3.5); Glucose 79 mg/dl (74-100); HDL Cholesterol 37 mg/dl (40-60)
[2021-11-13 17:53] LABS: Total Iron Binding Capacity 250 ug/dL (265-497)
[2021-11-13 17:54] LABS: Direct LDL Cholesterol 80.54 mg/dL (100-129)
[2021-11-13 18:00] LABS: 25-OH Vitamin D, Total 42.5 ng/mL (30-100)
[2021-11-13 18:14] LABS: Thyroid Stimulating Hormone 1.73 uIU/mL (0.465-4.68)
[2021-11-13 18:38] LABS: Anion Gap 11.4 mEq/L (5-15); Carbon Dioxide 25 mmol/L (22.0-30.0)
== END ==
PROVIDERS: Visit Provider Physician Assistant
DX: E03.9 Hypothyroidism, unspecified (principal); D50.9 Iron deficiency anemia, unspecified; E78.5 Hyperlipidemia, unspecified
CPT/HCPCS: 80053; 80061; 82306; 83540; 83550; 84443; 85025

== ENCOUNTER → 2022-05-10 16:22 | Outpatient (CLI) | payer OTHER, SELFPAY ==
--- NOTE | 2022-05-10 16:22 | MM_ITS ---
PROCEDURE INFORMATION: Exam: MG Bilateral Screening 3D Mammography Exam date and time: 05/10/2022 4:15 PM Age: 41 years old Clinical indication: Screening examination TECHNIQUE: Imaging protocol: Bilateral Screening tomosynthesis and 2D mammography including computer-aided detection (CAD) when performed. COMPARISON: 1. MG MM CLIP PLACEMENT LT 03/09/2021 11:29 AM 2. MG MM DIG MAMM DX UNILAT LT CAD 02/02/2021 1:44 PM 3. MG MM DIG SCREENING MAMM BI W/CAD 12/29/2020 3:18 PM FINDINGS: MAMMOGRAPHY: Breast composition: The breasts are heterogeneously dense, which may obscure small masses. Mass: No suspicious masses. Architectural distortion: No suspicious distortion. Calcifications: No suspicious calcifications. Asymmetric density: None. Skin thickening: None. Axillary adenopathy: None. IMPRESSION: No mammographic evidence of malignancy. Annual screening is recommended unless otherwise clinically indicated. ASSESSMENT: BI-RADS Category 1: Negative
== END ==
PROVIDERS: PCP Physician Assistant; Visit Provider Physician Assistant
DX: Z12.31 Encounter for screening mammogram for malignant neoplasm of breast (principal)
CPT/HCPCS: 77063; 77067

== ENCOUNTER 2022-07-05 14:51 | Emergency (ER) | payer OTHER, SELFPAY ==
[2022-07-05 16:30] VITALS: BP 141/90; PULSE 91; RESP 18; TEMP 37.3; O2SAT 99; BMI 26.6
--- NOTE | 2022-07-05 16:33 | EXP.UTC ---
Discharge Plan Disposition Patient Disposition: Home, Self-Care Condition: Good Prescriptions Prescriptions: New cefdinir 300 mg capsule 300 mg PO BID Qty: 20 0RF No Action phentermine [Adipex-P] 37.5 mg tablet 37.5 mg PO DAILY Qty: 30 0RF Rx Instructions: must administer 30 minutes before or 1-2 hours after breakfast amitriptyline 25 mg tablet 25 mg PO HS Qty: 30 2RF ergocalciferol (vitamin D2) 1,250 mcg (50,000 unit) capsule 50,000 unit PO QWEEK 90 Days Qty: 14 0RF ferrous sulfate [FeroSul] 325 mg (65 mg iron) tablet 325 mg PO BID Qty: 90 0RF levothyroxine 50 mcg tablet 50 mcg PO DAILY Qty: 90 0RF lisinopril 20 mg tablet 20 mg PO DAILY Qty: 90 1RF propranolol [Inderal LA] 80 mg capsule,extended release 24 hr 80 mg PO DAILY Qty: 90 3RF simvastatin [Zocor] 10 mg tablet 10 mg PO QHS Qty: 90 3RF ookjxmtcwl-yhreiocorouuk-avjk 50-325-40 mg tablet 1 tab PO Q6H PRN (Reason: pain) Qty: 30 2RF Referrals Follow up/Referrals: Katelynn Agrawal PA [Primary Care Provider] - See instructions Activity Restrictions/Add. Instructions Additional Instructions/Restrictions: *Monitor Temp, Over the counter Motrin or Tylenol as directed/as needed Tylenol every 4 hours and Motrin every 6 hours (as long as your family doctor has told you that you can take it) for fever or pain. and straight to ER if unable to lower temp less than 101.0 after medication given *Warm salt water gargles may help to soothe the throat *Throat Lozenges? *Warm fluids like tea with honey may help to soothe the throat? *Sleep elevated *Humidifier/Vaporizer Your throat swab was sent for culture. Those results are typically sent to your primary care. Be sure to follow up in 2-3 days with your family doctor/primary care physician if no improvement so they can review those result and treat if necessary. If you don?t have a primary care doctor, I recommend you get one but in the mean time, you will have to return to a walk in clinic Follow up IMMEDIATELY for new or worsening symptoms or no Noticeable improvement over the next 48-72 hours. 911 for difficulty breathing or swallowing You were tested for today for Upper Respiratory Panel with COVID19 your test result should be back in the next 24-48 hours, you check your results on the [facility] My Health Portal Clinical Impressions Clinical Impression: Otitis media Stand Alone Forms Stand Alone Forms: Work/School Release Instructions Patient Instructions: Middle Ear Infection, Sore Throat Discharge ED Provider: Yas Singh [facility] [place] HPI General Stated complaint: ear pressure, sore throat, body aches Time Seen by Provider: 07/05/22 16:34 History of Present Illness Provider Complaint: Patient states that she hasnt been feeling well States that she has been having pain and pressure in her left ear and hurts on the left side of her throat when she swallows States that today she has been feeling achy all over and having some chills Related Data Previous Rx's Medication Instructions Recorded phentermine 37.5 mg tablet 37.5 mg PO DAILY #30 tabs 11/13/21 (Adipex-P) amitriptyline 25 mg tablet 25 mg PO HS migraine prevention 02/22/22 #30 tabs aiiatkshfg-whbnthsowikax-hrgvttyu 1 tab PO Q6H PRN pain #30 tabs 02/22/22 50 mg-325 mg-40 mg tablet ergocalciferol (vitamin D2) 1,250 50,000 unit PO QWEEK 90 days #14 02/22/22 mcg (50,000 unit) capsule caps ferrous sulfate 325 mg (65 mg 325 mg PO BID #90 tabs 02/22/22 iron) tablet (FeroSul) levothyroxine 50 mcg tablet 50 mcg PO DAILY THYROID #90 tabs 02/22/22 lisinopril 20 mg tablet 20 mg PO DAILY #90 tabs 02/22/22 propranolol 80 mg capsule,24 80 mg PO DAILY #90 caps 02/22/22 hr,extended release (Inderal LA) simvastatin 10 mg tablet (Zocor) 10 mg PO QHS #90 tabs 02/22/22 cefdinir 300 mg capsule 300 mg PO BID #20 caps 07/05/22 Allergies Allergy/AdvReac Type Severity Reaction St
[2022-07-05 16:45] LABS: Coronavirus 19, PCR Not Detected (NotDetected); Influenza A, PCR Not Detected (NotDetected); Influenza B, PCR Not Detected (NotDetected)
[2022-07-05 16:47] LABS: UTC Strep Screen (Rapid) Negative (Negative)
[2022-07-05 17:00] VITALS: BP 141/90; PULSE 91; RESP 18; TEMP 37.3; O2SAT 99
== END 2022-07-05 17:03 | disposition home or self-care (01) ==
PROVIDERS: Emergency Provider Nurse Practitioner; PCP Physician Assistant
DX: H66.90 Otitis media, unspecified, unspecified ear (principal)
CPT/HCPCS: 87880; 99212; C9803; G0463; U0003; U0005

== ENCOUNTER → 2022-12-04 18:38 | Outpatient (CLI) | payer OTHER, SELFPAY ==
[2022-12-04 19:03] LABS: Basophils # 0.1 K/mm3 (0-0.2); Basophils % 0.5 % (0.1-2.0); Eosinophils # 0.2 K/mm3 (0.0-0.4); Eosinophils % 2.4 % (0.1-12.0); Hemoglobin 13.3 g/dL (12.2-16.2); Lymphocytes # 2.1 K/mm3 (0.7-4.5); Lymphocytes % 23.8 % (10-50); Mean Corpuscular HGB Conc 33.2 g/dL (31.8-35.4); Mean Corpuscular Hemoglobin 30.9 pg (27.0-31.2); Mean Corpuscular Volume 93.2 fl (81-99); Monocytes # 0.4 K/mm3 (0.1-1.0); Monocytes % 4.7 % (1.7-9.3); Neutrophils % 68.5 % (37.0-80.0); Platelet Count 361 K/mm3 (142-424); Red Blood Count 4.29 M/mm3 (4.20-5.40); Red Cell Distribution Width 12.5 % (11.5-17.5); White Blood Count 8.7 K/mm3 (4.8-10.8)
[2022-12-04 19:09] LABS: Chloride 101 mmol/L (98-107); Potassium 4.4 mmoL/L (3.5-5.1); Sodium 139 mmol/L (136-145)
[2022-12-04 19:11] LABS: Alanine Aminotransferase 24 U/L (12-78); Aspartate Amino Transferase 25 U/L (14-36); Blood Urea Nitrogen 11 mg/dl (7-17); Estimated Glomerular Filt Rate 69 ml/min (>60); GFR (African American) 83 ML/MIN (>60)
[2022-12-04 19:12] LABS: Albumin Level 4.4 g/dl (3.5-5.0); Albumin/Globulin Ratio 1.4 (1.1-1.8); Alkaline Phosphatase 73 U/L (38-126); Anion Gap 17.4 mEq/L (5-15); Bilirubin,Total 0.3 mg/dl (0.2-1.3); Calcium 10.1 mg/dl (8.4-10.2); Carbon Dioxide 25 mmol/L (22.0-30.0); Chol/HDL Ratio 4.9 (1-3.5); Cholesterol 165 mg/dl (140-200); Globulin 3.1 g/dL (1.3-3.2); Glucose 110 mg/dl (74-100); HDL Cholesterol 34 mg/dl (40-60); Iron 82 ug/dL (37-170); Total Protein,Serum 7.5 g/dl (6.3-8.2); Triglycerides 252 mg/dl (30-150); VLDL Cholesterol 50 mg/dL (0-40)
[2022-12-04 19:23] LABS: Total Iron Binding Capacity 237 ug/dL (265-497)
[2022-12-04 19:25] LABS: Direct LDL Cholesterol 95.08 mg/dL (100-129)
[2022-12-04 19:30] LABS: 25-OH Vitamin D, Total 31.1 ng/mL (30-100)
[2022-12-04 19:43] LABS: Thyroid Stimulating Hormone 1.52 uIU/mL (0.465-4.68)
[2022-12-04 19:47] LABS: Ferritin 186 ng/ml (6.24-137)
== END ==
LOC: LAB 18:40 → LAB.DROPOF 01-12 01:21
PROVIDERS: PCP Physician Assistant; Visit Provider Physician Assistant
DX: I10 Essential (primary) hypertension (principal); E03.9 Hypothyroidism, unspecified; D50.9 Iron deficiency anemia, unspecified
CPT/HCPCS: 80053; 80061; 82306; 82728; 83540; 83550; 84443; 85025

== ENCOUNTER 2022-12-19 10:56 | Outpatient (CLI) | payer OTHER, SELFPAY ==
[2022-12-19 11:10] VITALS: BP 136/88; PULSE 76; RESP 18; O2SAT 99
[2022-12-19 12:03] VITALS: BP 142/81; PULSE 76; RESP 18; O2SAT 99
== END 2022-12-19 12:08 | disposition home or self-care (01) ==
LOC: INF 10:57
PROVIDERS: PCP Physician Assistant; Visit Provider Emergency Medicine
DX: D50.9 Iron deficiency anemia, unspecified (principal)
CPT/HCPCS: 96365; J1756

== ENCOUNTER 2022-12-26 09:56 | Outpatient (CLI) | payer OTHER, SELFPAY ==
[2022-12-26 10:15] VITALS: BP 148/78; PULSE 78; RESP 18; TEMP 36.8; O2SAT 99
[2022-12-26 10:45] VITALS: BP 142/81; PULSE 78; RESP 18; O2SAT 99
== END 2022-12-26 11:00 | disposition home or self-care (01) ==
LOC: INF 09:57
PROVIDERS: PCP Emergency Medicine; Visit Provider Emergency Medicine
DX: D50.9 Iron deficiency anemia, unspecified (principal); T45.4X5A Adverse effect of iron and its compounds, initial encounter
CPT/HCPCS: 96365; J1756

== ENCOUNTER 2023-01-03 10:50 | Outpatient (CLI) | payer OTHER, SELFPAY ==
[2023-01-03 11:20] VITALS: BP 134/86; PULSE 95; RESP 16; O2SAT 97
[2023-01-03 11:50] VITALS: BP 142/82; PULSE 89; RESP 16
== END 2023-01-03 12:02 | disposition home or self-care (01) ==
LOC: INF 10:51
PROVIDERS: PCP Emergency Medicine; Visit Provider Emergency Medicine
DX: D50.9 Iron deficiency anemia, unspecified (principal)
CPT/HCPCS: 96365; J1756

== ENCOUNTER 2023-01-08 11:41 | Outpatient (CLI) | payer OTHER, SELFPAY ==
[2023-01-08 11:53] VITALS: BP 138/71; PULSE 78; RESP 18; O2SAT 99
[2023-01-08 12:35] VITALS: BP 134/72; PULSE 76; RESP 18; O2SAT 99
== END 2023-01-08 12:35 | disposition home or self-care (01) ==
LOC: INF 11:41
PROVIDERS: PCP Physician Assistant; Visit Provider Emergency Medicine
DX: D50.9 Iron deficiency anemia, unspecified (principal)
CPT/HCPCS: 96365; J1756

== ENCOUNTER 2023-01-16 12:12 | Outpatient (CLI) | payer OTHER, SELFPAY ==
[2023-01-16 12:35] VITALS: BP 146/88; PULSE 67; RESP 16; O2SAT 96
[2023-01-16 13:08] VITALS: BP 121/78; PULSE 69; RESP 16
== END 2023-01-16 13:15 | disposition home or self-care (01) ==
LOC: INF 12:13
PROVIDERS: PCP Emergency Medicine; Visit Provider Emergency Medicine
DX: D50.9 Iron deficiency anemia, unspecified (principal)
CPT/HCPCS: 96365; J1756

== ENCOUNTER 2023-08-14 12:04 | Outpatient (CLI) | payer OTHER, SELFPAY ==
[2023-08-14 12:34] LABS: Basophils # 0.1 K/mm3 (0-0.2); Basophils % 0.6 % (0.1-2.0); Eosinophils # 0.1 K/mm3 (0.0-0.4); Eosinophils % 1.6 % (0.1-12.0); Hemoglobin 14.2 g/dL (12.2-16.2); Lymphocytes # 1.8 K/mm3 (0.7-4.5); Lymphocytes % 22.7 % (10-50); Mean Corpuscular HGB Conc 33.7 g/dL (31.8-35.4); Mean Corpuscular Hemoglobin 31.5 pg (27.0-31.2); Mean Corpuscular Volume 93.4 fl (81-99); Mean Platelet Volume 8.4 fl (7.4-10.4); Monocytes # 0.5 K/mm3 (0.1-1.0); Monocytes % 6.1 % (1.7-9.3); Neutrophils # 5.3 K/mm3 (1.8-7.8); Platelet Count 291 K/mm3 (142-424); Red Blood Count 4.49 M/mm3 (4.20-5.40); Red Cell Distribution Width 13.1 % (11.5-17.5); White Blood Count 7.7 K/mm3 (4.8-10.8)
[2023-08-14 12:39] LABS: Chloride 107 mmol/L (98-107)
[2023-08-14 12:40] LABS: Sodium 140 mmol/L (136-145)
[2023-08-14 12:42] LABS: Alanine Aminotransferase 26 U/L (12-78); Alkaline Phosphatase 61 U/L (38-126); Aspartate Amino Transferase 30 U/L (14-36); Bilirubin,Total 0.4 mg/dl (0.2-1.3); Blood Urea Nitrogen 13 mg/dl (7-17); Carbon Dioxide 23 mmol/L (22.0-30.0); Estimated Glomerular Filt Rate 92 ml/min (>60); GFR (African American) 111 ML/MIN (>60); Triglycerides 146 mg/dl (30-150); VLDL Cholesterol 29 mg/dL (0-40)
[2023-08-14 12:43] LABS: Albumin Level 4.5 g/dl (3.5-5.0); Albumin/Globulin Ratio 1.6 (1.1-1.8); Calcium 10.5 mg/dl (8.4-10.2); Cholesterol 203 mg/dl (140-200); Globulin 2.8 g/dL (1.3-3.2); Glucose 85 mg/dl (74-100); HDL Cholesterol 34 mg/dl (40-60); Total Protein,Serum 7.3 g/dl (6.3-8.2)
[2023-08-14 12:54] LABS: Direct LDL Cholesterol 116.72 mg/dL (100-129)
[2023-08-14 13:13] LABS: Thyroid Stimulating Hormone 2.02 uIU/mL (0.465-4.68)
[2023-08-14 13:27] LABS: 25-OH Vitamin D, Total 49.4 ng/mL (30-100)
[2023-08-14 14:01] LABS: Vitamin B12 340 pg/mL (239-931)
== END 2023-08-14 23:59 ==
LOC: LAB.DROPOF 12:05
PROVIDERS: PCP Physician Assistant; Visit Provider Physician Assistant
DX: E03.9 Hypothyroidism, unspecified (principal); Z79.899 Other long term (current) drug therapy; Z86.39 Personal history of other endocrine, nutritional and metabolic disease
CPT/HCPCS: 80053; 80061; 82306; 82607; 84443; 85025

== ENCOUNTER 2023-08-27 09:45 | Outpatient (CLI) | payer OTHER, SELFPAY ==
--- NOTE | 2023-08-27 09:45 | MM_ITS ---
PROCEDURE INFORMATION: Exam: MG Bilateral Screening 3D Mammography Exam date and time: 08/27/2023 9:51 AM Age: 42 years old Clinical indication: Screening mammogram TECHNIQUE: Imaging protocol: Bilateral Screening tomosynthesis and 2D mammography including computer-aided detection (CAD) when performed. COMPARISON: 1. MG MM DIG SCREENING MAMM BI W/CAD 05/10/2022 4:15 PM 2. MG MM CLIP PLACEMENT LT 03/09/2021 11:29 AM 3. MG MM DIG MAMM DX UNILAT LT CAD 02/02/2021 1:44 PM 4. MG MM DIG SCREENING MAMM BI W/CAD 12/29/2020 3:18 PM FINDINGS: MAMMOGRAPHY: Breast composition: The breast is heterogeneously dense, which may obscure small masses. Mass: 0.7 cm mass within the inner left middle 1/3, not well-delineated on MLO, should be further assessed with spot views in CC/MLO and full lateral projection. Ultrasound should also be performed. Architectural distortion: No new or suspicious architectural distortion. Calcifications: No new or suspicious calcifications are present Asymmetric density: No new or suspicious asymmetric density is present Skin thickening: None. Axillary adenopathy: None. IMPRESSION: 0.7 cm mass within the inner left middle 1/3, not well-delineated on MLO, should be further assessed with spot views in CC/MLO and full lateral projection. Ultrasound should also be performed. ASSESSMENT: BI-RADS category 0: Incomplete-need additional imaging evaluation
== END 2023-08-27 23:59 ==
LOC: RAD 09:45
PROVIDERS: PCP Physician Assistant; Visit Provider Physician Assistant
DX: Z12.31 Encounter for screening mammogram for malignant neoplasm of breast (principal)
CPT/HCPCS: 77063; 77067

== ENCOUNTER 2023-09-09 14:39 | Outpatient (CLI) | payer OTHER, SELFPAY ==
--- NOTE | 2023-09-09 14:39 | MM_ITS ---
PROCEDURE INFORMATION: Exam: US Left Breast, Complete MG Left Diagnostic Breast Tomosynthesis Exam date and time: 09/09/2023 3:05 PM Age: 42 years old Clinical indication: Patient recalled on the basis of a screening mammogram for further evaluation; Left breast; mass TECHNIQUE: Imaging protocol: Complete ultrasound of all four quadrants of the left breast and the retroareolar regions, including ultrasound of the axilla when performed. Left Diagnostic tomosynthesis and 2D mammography including computer-aided detection (CAD) when performed. Unilateral or bilateral exam. COMPARISON: US BREAST LT COMPLETE 02/02/2021 2:29 PM FINDINGS: MAMMOGRAPHY: Digital diagnostic spot compression views of the left breast and 90 degree lateral view of the left breast demonstrate normal overlapping fibroglandular structures without persistent mass or asymmetry identified. ULTRASOUND: Sonographic images of the left breast including the retroareolar region, all 4 quadrants and the axilla do not demonstrate any solid masses. Few scattered cysts are present measuring up 1.1 cm in the lower outer quadrant 2 cm from the nipple. No architectural distortion or acoustical shadowing. No skin thickening or axillary adenopathy. IMPRESSION: No mammographic or sonographic evidence of malignancy. Annual bilateral mammographic screening is recommended unless otherwise clinically indicated. ASSESSMENT: BI-RADS Category 2: Benign
[2023-09-13 08:26] VITALS: BMI 28.5
== END 2023-09-09 23:59 ==
LOC: RAD 14:39
PROVIDERS: PCP Physician Assistant; Visit Provider Physician Assistant
DX: R92.8 Other abnormal and inconclusive findings on diagnostic imaging of breast (principal)
CPT/HCPCS: 76641; 77061; 77065; G0279

== ENCOUNTER 2025-05-19 08:59 | Outpatient (CLI) | payer OTHER, SELFPAY ==
[2025-05-19 14:40] LABS: Hematocrit 40.2 % (37.0-47.0); Hemoglobin 13.4 g/dL (12.2-16.2); Immature Granulocytes % 0.2 %; Mean Corpuscular HGB Conc 33.3 g/dL (31.8-35.4); Mean Corpuscular Hemoglobin 31.1 pg (27.0-31.2); Mean Corpuscular Volume 93.3 fl (81-99); Nucleated Red Blood Cells % 0 %; Platelet Count 275 K/mm3 (142-424); Red Blood Count 4.31 M/mm3 (4.20-5.40); Red Cell Distribution Width-SD 40.9 fL; White Blood Count 6.2 K/mm3 (4.8-10.8)
[2025-05-19 15:22] LABS: Hemoglobin A1C 4.8 % (4.0-6.0)
[2025-05-19 15:23] LABS: Albumin Level 4.8 g/dl (3.5-5.0); Chloride 102 mmol/L (98-107); Sodium 139 mmol/L (136-145)
[2025-05-19 15:24] LABS: Potassium 4.5 mmoL/L (3.5-5.1)
[2025-05-19 15:26] LABS: Alanine Aminotransferase 11 U/L (12-78); Albumin/Globulin Ratio 1.5 (1.1-1.8); Alkaline Phosphatase 54 U/L (38-126); Anion Gap 15.5 mEq/L (5-15); Aspartate Amino Transferase 21 U/L (14-36); Bilirubin,Total 0.4 mg/dl (0.2-1.3); Blood Urea Nitrogen 18 mg/dl (7-17); Calcium 10.2 mg/dl (8.4-10.2); Carbon Dioxide 26 mmol/L (22.0-30.0); Cholesterol 166 mg/dl (140-200); Creatinine,Serum 0.80 mg/dl (0.52-1.04); Estimated Glomerular Filt Rate 78 ml/min (>60); GFR (African American) 94 ML/MIN (>60); Globulin 3.1 g/dL (1.3-3.2); Glucose 67 mg/dl (74-100); Total Protein,Serum 7.9 g/dl (6.3-8.2); Triglycerides 98 mg/dl (30-150)
[2025-05-19 15:27] LABS: HDL Cholesterol 43 mg/dl (40-60)
[2025-05-19 15:45] LABS: Free T4 (Free Thyroxine) 1.08 ng/dl (0.78-2.19)
[2025-05-19 15:59] LABS: Thyroid Stimulating Hormone 2.40 uIU/mL (0.465-4.68)
[2025-05-19 16:18] LABS: Hepatitis C Ab Qual. W/ RFX NEGATIVE (Negative)
== END 2025-05-19 23:59 ==
LOC: LAB.DROPOF 05-20 09:44
PROVIDERS: PCP Internal Medicine; Visit Provider Internal Medicine
DX: Z00.00 Encounter for general adult medical examination without abnormal findings (principal); D50.9 Iron deficiency anemia, unspecified; E03.9 Hypothyroidism, unspecified; Z11.4 Encounter for screening for human immunodeficiency virus [HIV]; E78.5 Hyperlipidemia, unspecified; I10 Essential (primary) hypertension
CPT/HCPCS: 80053; 80061; 83036; 84439; 84443; 85025; 86803; 87389

== ENCOUNTER 2025-06-11 10:25 | Outpatient (CLI) | payer OTHER, SELFPAY ==
--- OUTSIDE RECORDS SUMMARY | 2025-06-11 10:27 | XMS_ITS ---
Author Organization Unknown ENCOUNTERS Encounter Performer Location Date Diagnosis Diagnosis Status [place] [facility] [place] [address] [place] [address] [id number] [place] [facility] [place] [address] [place] [address] [id number] DAVID Emergency Yas Singh [address] [place] [address] [id number] DAVID Emergency Gavino Chandler [address] [place] [address] [id number] DAV[facility] Emergency Katelynn Agrawal [address] [place] [address] [id number] DAVID *Note: Encounters from your own facility or health system may be excluded. Allergies, Adverse Reactions, Alerts Allergen Type Severity Identification Date Medications Name Date Quantity Days Supplied GPI Number
--- NOTE | 2025-06-11 10:30 | MM_ITS ---
PROCEDURE INFORMATION: Exam: MG Bilateral Screening 3D Mammography Exam date and time: 06/11/2025 10:28 AM Age: 44 years old Clinical indication: Screening exam. TECHNIQUE: Imaging protocol: Bilateral Screening tomosynthesis and 2D mammography including computer-aided detection (CAD) when performed. COMPARISON: 1. MG MM DIG MAMM DX UNILAT LT CAD 09/09/2023 2:30 PM 2. MG MM DIG SCREENING MAMM BI W/CAD 08/27/2023 9:51 AM FINDINGS: MAMMOGRAPHY: Breast composition: The breasts are heterogeneously dense, which may obscure small masses. Mass: 0.4 cm questioned mass left central breast slightly lateral midline middle to posterior depth. Architectural distortion: None. Calcifications: No suspicious calcifications. Asymmetric density: None. Skin thickening: None. Axillary adenopathy: None. IMPRESSION: Subcentimeter questioned left breast mass.Recommend left breast diagnostic mammogram including spot compression views of the left breast in the CC and MLO projections, a full 90 degree lateral view, and left breast ultrasound for further evaluation. ASSESSMENT: BI-RADS Category 0: Incomplete- Need Additional Imaging Evaluation.
== END 2025-06-11 23:59 | disposition home or self-care (01) ==
LOC: RAD 10:26
PROVIDERS: PCP Internal Medicine; Visit Provider Internal Medicine
DX: Z12.31 Encounter for screening mammogram for malignant neoplasm of breast (principal); R92.333 Mammographic heterogeneous density, bilateral breasts; R92.8 Other abnormal and inconclusive findings on diagnostic imaging of breast
CPT/HCPCS: 77063; 77067

== ENCOUNTER 2025-07-07 14:18 | Outpatient (CLI) | payer OTHER, SELFPAY ==
--- NOTE | 2025-07-07 14:30 | US_ITS ---
PROCEDURE INFORMATION: Exam: US Left Breast, Complete MG Left Diagnostic Breast Tomosynthesis Exam date and time: 07/07/2025 2:27 PM Age: 44 years old Clinical indication: Callback from screening for a left breast mass. TECHNIQUE: Imaging protocol: Complete ultrasound of all four quadrants of the left breast and the retroareolar regions, including ultrasound of the axilla when performed. Left Diagnostic tomosynthesis and 2D mammography including computer-aided detection (CAD) when performed. Unilateral or bilateral exam. COMPARISON: MG MM DIG SCREENING MAMM BI W/CAD 06/11/2025 10:28 AM FINDINGS: MAMMOGRAPHY: Breast composition: The breast is heterogeneously dense, which may obscure small masses. Breast mammogram findings: On the spot-compression views, there is a low-density circumscribed 0.4 cm mass in the retroareolar aspect of the left breast. No distortion or suspicious calcifications. ULTRASOUND: Breast ultrasound findings: In the left breast 1 o'clock axis, 3 cm from the nipple, there is a hypoechoic mass that measures 0.4 x 0.1 x 0.4 cm. In the 3 o'clock axis, 3 cm from the nipple, there is a complex cyst that measures 0.3 x 0.2 x 0.4 cm. This is believed to correlate to the mammogram finding. Incidental additional scattered complicated cysts are seen in the 6 and 9 o'clock axis. In the left retroareolar aspect, there is a cyst that measures 1.1 x 0.6 x 1.1 cm. No lymphadenopathy by size or morphologic criteria in the left axillary region. IMPRESSION: Probably benign cystic changes in the left breast 1 o'clock and 3 o'clock axis, as above. The 3 o'clock finding is believed to correlate to the mammogram finding from 06/11/2025. Six-month follow-up left breast diagnostic mammogram and ultrasound are recommended for follow-up. ASSESSMENT: BI-RADS Category 3: Probably benign.
== END 2025-07-07 23:59 | disposition home or self-care (01) ==
LOC: RAD 14:18
PROVIDERS: PCP Internal Medicine; Visit Provider Internal Medicine
DX: R92.332 Mammographic heterogeneous density, left breast (principal); N63.21 Unspecified lump in the left breast, upper outer quadrant; R92.8 Other abnormal and inconclusive findings on diagnostic imaging of breast
CPT/HCPCS: 76641; 77061; 77065; G0279